=== PATIENT | male | born 1985 | race Caucasian/White ===

== ENCOUNTER 2017-05-15 13:42 | Emergency (ER) | payer BC ==
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
[2017-05-15 17:55] VITALS: BP 149/98
== END 2017-05-15 16:47 | disposition home or self-care (01) ==
LOC: ER 13:42
DX: M79.1 Myalgia (principal); V49.40XA Driver injured in collision with unspecified motor vehicles in traffic accident, initial encounter